=== PATIENT | male | born 1930 | race Caucasian/White ===

== ENCOUNTER → 2016-08-19 | Day surgery (SDC) | payer MEDICARE, OTHER ==
[~2016-08-19] MED LIST: ATROPINE SULFATE 1% OPHT SOLN 2 ML BTL ONE; BACITRACIN IM FOR SOLN 50,000 UNIT VIAL ONE; COUM5TAB PO; DEXAMETHASONE SOD PHOS 4 MG/ML VIAL ONE; DILT180C56 PO; EPINEPHrine HCL (1:1000) 1 MG/ML VIAL ONE; FLURBIPROFEN 0.03% OPHT SOLN 2.5 ML BTL ONE; HYALURONIDASE/LIDOCAINE/BUPIVACAINE 11 ML SYR TL ONE; LACTATED RINGER'S 1000 ML INJ 1,000 ML ONE; NEOMYCIN/POLYMYXIN/DEXAMETHASONE OPTH OINT 3.5 GM TUBE ONE; OMEP20CA5 PO; PHENYLEPHRINE HCL 2.5 % OPTH SOLN 15 ML BTL ONE; PROPARACAINE HCL 0.5% OPHT SOLN 15 ML BTL ONE; SIMV10TA OR; SODIUM CHLORIDE 0.9% 20 ML VIAL ONE; SODIUM CHLORIDE 0.9% INJ 10 ML ONE; TRIAMCINOLONE ACETONIDE 40 MG/ML VIAL ONE; TROPICAMIDE 1% OPHT SOLN 15 ML BTL ONE; VESI5TAB PO; ceFAZolin INJ 1,000 MG VIAL ONE
--- NOTE | 2016-08-22 16:23 | TN ---
cc: LOUIS CRUZ MD DATE OF SURGERY: 08/19/2016 DATE OF : 1930 PREOPERATIVE DIAGNOSIS Vitreous hemorrhage, right eye. POSTOPERATIVE DIAGNOSIS Vitreous hemorrhage, right eye. PROCEDURE After informed consent was obtained, the patient was given retrobulbar anesthesia. He was then prepared and draped in the usual sterile fashion in the operating room. A wire lid speculum was placed in the patient's right eye. 23 gauge vitrectomy cannulas were then placed lower temporal, supratemporal and supranasal quadrants 3 mm posterior to the corneal scleral limits. An infusion cannula was placed lower temporally. Core vitrectomy was then performed. The vitreous debris was removed and with the vitrectomy that was carried out as far as possible to the vitreous space. Careful ophthalmoscopy with scleral depression was then performed, no peripheral retinal breaks were noted. The three vitrectomy cannulas were then removed. Subconjunctival injections of Dexamethasone and Ancef were placed. An Atropine drop, Maxitrol ointment and patch and shield were then applied. The patient tolerated the procedure well, there were no complications. [facility] will [facility]. Louis Cruz MD TAB/TLL /6:48 PM /3:51 PM
== END | disposition home or self-care (01) ==
LOC: ESDC 11:59
PROVIDERS: ATTEND Ophthalmology Retina Specialist
DX: H43.11 Vitreous hemorrhage, right eye (principal)
CPT/HCPCS: 00145; 67036; J0171; J0690; J1100; J7120; J3301